=== PATIENT | female | born 1995 | race African-American/Black ===

== ENCOUNTER 2016-09-17 14:25 | Inpatient (IN) | payer OTHER ==
[~2016-09-17] VITALS: Ht 162.6 cm; Wt 126.6 kg
[2016-09-17] VITALS (8 sets, daily range): BP systolic 102–122; BP diastolic 55–78; PULSE 110–140; RESP 16–20; TEMP 99.2–102.7; O2SAT 95–99
[~2016-09-17 14:25] MED LIST: CORTIS10A RIGHT EAR; CYCL-36 PO; DICL50 PO; IBUP-232 PO
[2016-09-17] MEDS ORDERED: SODIUM CHLOR 0.9% 1000 ML INJ 1,000 ML IV ONE ×3 (15:21)
[2016-09-17] MEDS ORDERED: VANCOMYCIN INJ 1,000 MG in SODIUM CHLOR 0.9% 250 ML INJ 250 ML IV STA (15:21)
[2016-09-17] MEDS ORDERED: SODIUM CHLOR 0.9% 1000 ML INJ 900 ML IV ONE (15:21)
[2016-09-17] MEDS ORDERED: PIPERACIL-TAZO 4.5 GM PREMIX 100 ML IV STA (15:21)
[2016-09-17] MEDS ORDERED: ACETAMINOPHEN 650 MG/20.3 ML UDC PO ONE (15:30)
[2016-09-17 15:41] LABS: AUTOMATED NEUTROPHIL # 24.7 TH/MM3 (1.8-7.7); BASOPHIL # 0.4 TH/MM3 (0-0.2); BASOPHIL % 1.4 % (0.0-2.0); EOSINOPHIL % 0.1 % (0.0-4.0); HEMATOCRIT 26.6 % (35.0-46.0); LYMPH % 4.5 % (9.0-44.0); LYMPHOCYTE # 1.2 TH/MM3 (1.0-4.8); MEAN CELL VOLUME 77.4 FL (80.0-100.0); MEAN CORPUSCULAR HEMOGLOBIN 24.7 PG (27.0-34.0); MEAN CORPUSCULAR HGB CONC 31.9 % (32.0-36.0); PLATELET COUNT 369 TH/MM3 (150-450); RED BLOOD COUNT 3.43 MIL/MM3 (4.00-5.30); RED CELL DISTRIBUTION WIDTH 13.9 % (11.6-17.2); WHITE BLOOD COUNT 27.4 TH/MM3 (4.0-11.0)
[2016-09-17 15:44] LABS: HEMO FLAGS AUTO DIFF
[2016-09-17 15:49] LABS: CHLORIDE 106 MEQ/L (98-107); POTASSIUM 3.2 MEQ/L (3.5-5.1); SODIUM (NA) 140 MEQ/L (136-145)
[2016-09-17 15:53] LABS: ANION GAP 8 MEQ/L (5-15)
[2016-09-17 15:54] LABS: BLOOD UREA NITROGEN 11 MG/DL (7-18)
[2016-09-17 15:56] LABS: ALT (GPT) 25 U/L (10-53); AST (GOT) 16 U/L (15-37); GLOMERULAR FILTRATION RATE 62 ML/MIN (>89)
[2016-09-17 15:58] LABS: TOTAL BILIRUBIN ADULT 2.3 MG/DL (0.2-1.0)
[2016-09-17 15:59] LABS: ALKALINE PHOSPHATASE 72 U/L (45-117)
--- NOTE | 2016-09-17 16:01 | RADHPO ---
EXAM DATE/TIME: 09/17/2016 15:55 [facility] COMPARISON: No previous studies available for comparison. INDICATIONS : Vomiting, diarrhea and fever. MEDICAL HISTORY : None. SURGICAL HISTORY : None. ENCOUNTER: Initial ACUITY: 4 - 6 days PAIN SCORE: 10/10 LOCATION: Bilateral chest FINDINGS: There hypoventilatory changes. The lungs are otherwise clear. The heart is normal in size. Visualized bony structures are intact. CONCLUSION: Hypoventilatory changes. The film was taken in expiration. No acute cardiopulmonary findings. Juan Pablo MD on September 17, 2016 at 15:59 Board Certified Radiologist. This report was verified electronically.
[2016-09-17 16:10] LABS: BANDS 19 % (0-6); NEUTROPHIL # MANUAL DIFF 25.2 TH/MM3 (1.8-7.7); PLATELET ESTIMATE SMEAR NORMAL (NORMAL); PLATELET MORPHOLOGY NORMAL (NORMAL); POLYS (SEG NEUTROPHILS) 73 % (16-70); SCAN/DIFF FINAL DIFF MANUAL; WBC DIFF SAMPLE 100
[2016-09-17] MEDS ORDERED: DEXAMETHASONE SOD PHOS 20 MG/5 ML VIAL IV PUSH ONE (16:30)
[2016-09-17] MEDS ORDERED: IOHEXOL 350 MG/ML 10 ML VIAL (for RAD DIAG) IV ONE (17:15)
--- NOTE | 2016-09-17 17:19 | PD ---
HPI Chief Complaint: Cold / Flu Symptoms Time Seen by Provider: 15:13 Travel History International Travel<30 days: No Contact w/Intl Traveler<30days: No Traveled to known affect area: No History of Present Illness HPI 21y F with no PMH presents to the ED with c/o fever, throat pain for 4 days. Pt also had sob for 2 days and abdominal pain started yesterday. Abdominal pain is right sided, upper and lower abdomen. Worst with movement. Denies any chest pain, vomiting, focal weakness or numbness or urinary complaints. PFSH Past Medical History Hx Anticoagulant Therapy: No Asthma: Yes Cardiovascular Problems: No Chemotherapy: No Cerebrovascular Accident: No Developmental Delay: No Diabetes: No Diminished Hearing: No Respiratory: Yes (ASTHMA) Immunizations Current: Yes Tetanus Vaccination: > 5 Years Influenza Vaccination: No ?: Not LMP: spotting now Past Surgical History Surgical History: No Previous Surgery Hysterectomy: No Family History Family Hypercholesterolemia: No Social History Alcohol Use: No Tobacco Use: No Substance Use: No Allergies-Medications (Allergen,Severity, Reaction): Coded Allergies: No Known Allergies (Verified , 09/17/16) Reported Meds & Prescriptions Reported Meds & Active Scripts Active No Active Prescriptions or Reported Medications Review of Systems Except as stated in HPI: all other systems reviewed are Neg Physical Exam Narrative GENERAL: 21yo F in moderate distress. SKIN: Warm and dry. HEAD: Atraumatic. Normocephalic. EYES: Pupils equal and round. No scleral icterus. No injection or drainage. ENT: +Bilateral tonsillar edema with mild erythema. NECK: Trachea midline. No JVD. CARDIOVASCULAR: Tachycardic. RESPIRATORY: + accessory muscle use. Clear to auscultation. Breath sounds equal bilaterally. GASTROINTESTINAL: Abdomen soft, obese, +TTP epigastric, RUQ, RLQ. No rebound tenderness or guarding. MUSCULOSKELETAL: No obvious deformities. No clubbing. No cyanosis. No edema. NEUROLOGICAL: Awake and alert. No obvious cranial nerve deficits. Motor grossly within normal limits. Normal speech. PSYCHIATRIC: Appropriate mood and affect; insight and judgment normal. Data Data Last Documented VS Vital Signs Date Time Temp Pulse Resp B/P Pulse Ox O2 Delivery O2 Flow Rate FiO2 09/17/16 17:29 16 09/17/16 17:01 126 98 Room Air 09/17/16 14:28 102.7 122/78 Orders Complete Blood Count With Diff (09/17/16 15:21) Comprehensive Metabolic Panel (09/17/16 15:21) Lactic Acid Sepsis Protocol (09/17/16 15:21) Lipase (09/17/16 15:21) Urinalysis - C+S If Indicated (09/17/16 15:21) Influenzae A/B Antigen (09/17/16 15:21) Blood Culture (09/17/16 15:21) Chest, Single Ap (09/17/16 15:21) Ecg Monitoring (09/17/16 15:21) Iv Access Insert/Monitor (09/17/16 15:21) Oximetry (09/17/16 15:21) Ct Abd/Pel W Iv Contrast(Rout) (09/17/16 15:21) Vancomycin Inj (Vancomycin Inj) (09/17/16 15:21) Piperacil-Tazo 4.5 Gm Premix (Zosyn 4.5 (09/17/16 15:21) Sodium Chlor 0.9% 1000 Ml Inj (Ns 1000 M (09/17/16 15:21) Sodium Chlor 0.9% 1000 Ml Inj (Ns 1000 M (09/17/16 15:21) Sodium Chlor 0.9% 1000 Ml Inj (Ns 1000 M (09/17/16 15:21) Sodium Chlor 0.9% 1000 Ml Inj (Ns 1000 M (09/17/16 15:21) Ed Urine Pregnancytest Poc (09/17/16 15:21) Group A Rapid Strep Screen (09/17/16 15:21) Acetaminophen 650 Mg/20 Ml Liq (Tylenol (09/17/16 15:30) Dexamethasone Inj (Decadron Inj) (09/17/16 16:30) Iohexol 350 Inj (Omnipaque 350 Inj) (09/17/16 17:15) Potassium Chloride (Kcl) (09/17/16 17:30) Potassium Chloride Eff (K-Lyte Cl Eff) (09/17/16 17:45) Admit Order (Ed Use Only) (09/17/16 17:52) Labs Laboratory Tests Test 09/17/16 09/17/16 15:25 17:33 White Blood Count 27.4 TH/MM3 Red Blood Count 3.43 MIL/MM3 Hemoglobin 8.5 GM/DL Hematocrit 26.6 % Mean Corpuscular Volume 77.4 FL Mean Corpuscular Hemoglobin 24.7 PG Mean Corpuscular Hemoglobin 31.9 % Concent Red Cell Distribution Width 13.9 % Platelet Count 369 TH/MM3 Mean Platelet Volume 8.1 FL Neutrophils (%) (Auto) 90.0 % Lymphocytes (%) (Auto) 4.5 % Monocytes (%) (Auto) 4.0 % Eosinophils (%) (Auto) 0.1 % Basophils (%) (Auto) 1.4 % Neutrophils # (Auto) 24.7 TH/MM3 Lymphocytes # (Auto) 1.2 TH/MM3 Monocytes # (Auto) 1.1 TH/MM3 Eosinophils # (Auto) 0.0 TH/MM3 Basophils # (Auto) 0.4 TH/MM3 CBC Comment AUTO DIFF Differential Total Cells 100 Counted Neutrophils % (Manual) 73 % Band Neutrophils % 19 % Lymphocytes % 5 % Monocytes % 3 % Neutrophils # (Manual) 25.2 TH/MM3 Differential Comment FINAL DIFF MANUAL Platelet Estimate NORMAL Platelet Morphology Comment NORMAL Red Cell Morphology Comment NORMAL Sodium Level 140 MEQ/L Potassium Level 3.2 MEQ/L Chloride Level 106 MEQ/L Carbon Dioxide Level 26.0 MEQ/L Anion Gap 8 MEQ/L Blood Urea Nitrogen 11 MG/DL Creatinine 1.30 MG/DL Estimat Glomerular Filtration 62 ML/MIN Rate Random Glucose 114 MG/DL Lactic Acid Level 2.6 mmol/L Calcium Level 7.9 MG/DL Total Bilirubin 2.3 MG/DL Aspartate Amino Transf 16 U/L (AST/SGOT) Alanine Aminotransferase 25 U/L (ALT/SGPT) Alkaline Phosphatase 72 U/L Total Protein 7.3 GM/DL Albumin 2.9 GM/DL Lipase 49 U/L Urine Collection Type CATH Urine Color YELLOW Urine Turbidity SL Urine pH 6.0 Urine Specific Jansen 1.021 Urine Protein NEG mg/dL Urine Glucose (UA) NEG mg/dL Urine Ketones TRACE mg/dL Urine Occult Blood MOD Urine Nitrite NEG Urine Bilirubin NEG Urine Leukocyte Esterase NEG Urine RBC 0-3 /hpf Urine WBC 3-5 /hpf Urine Bacteria OCC /hpf MDM Medical Decision Making Medical Screen Exam Complete: Yes Emergency Medical Condition: Yes Interpretation(s) Laboratory Tests Test 09/17/16 09/17/16 15:25 17:33 White Blood Count 27.4 TH/MM3 (4.0-11.0) Red Blood Count 3.43 MIL/MM3 (4.00-5.30) Hemoglobin 8.5 GM/DL (11.6-15.3) Hematocrit 26.6 % (35.0-46.0) Mean Corpuscular Volume 77.4 FL (80.0-100.0) Mean Corpuscular Hemoglobin 24.7 PG (27.0-34.0) Mean Corpuscular Hemoglobin 31.9 % Concent (32.0-36.0) Red Cell Distribution Width 13.9 % (11.6-17.2) Platelet Count 369 TH/MM3 (150-450) Mean Platelet Volume 8.1 FL (7.0-11.0) Neutrophils (%) (Auto) 90.0 % (16.0-70.0) Lymphocytes (%) (Auto) 4.5 % (9.0-44.0) Monocytes (%) (Auto) 4.0 % (0.0-8.0) Eosinophils (%) (Auto) 0.1 % (0.0-4.0) Basophils (%) (Auto) 1.4 % (0.0-2.0) Neutrophils # (Auto) 24.7 TH/MM3 (1.8-7.7) Lymphocytes # (Auto) 1.2 TH/MM3 (1.0-4.8) Monocytes # (Auto) 1.1 TH/MM3 (0-0.9) Eosinophils # (Auto) 0.0 TH/MM3 (0-0.4) Basophils # (Auto) 0.4 TH/MM3 (0-0.2) CBC Comment AUTO DIFF Differential Total Cells 100 Counted Neutrophils % (Manual) 73 % (16-70) Band Neutrophils % 19 % (0-6) Lymphocytes % 5 % (9-44) Monocytes % 3 % (0-8) Neutrophils # (Manual) 25.2 TH/MM3 (1.8-7.7) Differential Comment FINAL DIFF MANUAL Platelet Estimate NORMAL (NORMAL) Platelet Morphology Comment NORMAL (NORMAL) Red Cell Morphology Comment NORMAL (NORMAL) Sodium Level 140 MEQ/L (136-145) Potassium Level 3.2 MEQ/L (3.5-5.1) Chloride Level 106 MEQ/L (98-107) Carbon Dioxide Level 26.0 MEQ/L (21.0-32.0) Anion Gap 8 MEQ/L (5-15) Blood Urea Nitrogen 11 MG/DL (7-18) Creatinine 1.30 MG/DL (0.50-1.00) Estimat Glomerular Filtration 62 ML/MIN (>89) Rate Random Glucose 114 MG/DL (74-106) Lactic Acid Level 2.6 mmol/L (0.4-2.0) Calcium Level 7.9 MG/DL (8.5-10.1) Total Bilirubin 2.3 MG/DL (0.2-1.0) Aspartate Amino Transf 16 U/L (15-37) (AST/SGOT) Alanine Aminotransferase 25 U/L (10-53) (ALT/SGPT) Alkaline Phosphatase 72 U/L (45-117) Total Protein 7.3 GM/DL (6.4-8.2) Albumin 2.9 GM/DL (3.4-5.0) Lipase 49 U/L (73-393) Urine Collection Type CATH Urine Color YELLOW (YELLW/STRAW) Urine Turbidity SL (CLEAR) Urine pH 6.0 (5.0-8.5) Urine Specific Jansen 1.021 (1.002-1.035) Urine Protein NEG mg/dL (NEG-TRACE) Urine Glucose (UA) NEG mg/dL (NEG) Urine Ketones TRACE mg/dL (NEG) Urine Occult Blood MOD (NEG) Urine Nitrite NEG (NEG) Urine Bilirubin NEG (NEG) Urine Leukocyte Esterase NEG (NEG) Urine RBC 0-3 /hpf (0-3) Urine WBC 3-5 /hpf (0-5) Urine Bacteria OCC /hpf (NONE) Last Impressions Chest X-Ray 09/17/16 1521 Signed Impressions: Service Date/Time: Saturday, September 17, 2016 15:55 - CONCLUSION: Hypoventilatory changes. The film was taken in expiration. No acute cardiopulmonary findings. Juan Pablo MD Abdomen/Pelvis CT 09/17/16 1521 Signed Impressions: Service Date/Time: Saturday, September 17, 2016 17:05 - CONCLUSION: Gallbladder contracted around multiple gallstones.. Lalo Schmidt MD Differential Diagnosis Strep throat vs. influenza vs. PNA vs. acute cholangitis vs. appendicitis Narrative Course 21yo F with fever and tachycardia meeting SIRS criteria. Pt empirically given vancomycin and zosyn. Pt also give dexamethasone for swelling in throat. NS IVF x4 ordered. Labs reviewed, leukocytosis at 27.4. H/H 8.5/26.6. Pt has been having irregular menstruation. K: 3.2. Creatinine elevated at 1.30, increased from 0.8 on 01/2016. Lactic acid 2.6. Lipase low at 49. No elevation of LFTs. Total bilirubin elevated at 2.3. Positive rapid strep. CTa /p showed gallbladder contracted with multiple gallstones. CXR showed no acute cardiopulmonary findings. UA with occasional bacteria. Pt with sepsis and end organ damage. Pt responding to IVF and feels better. Discussed with Dr. Garcia and accepted for severe sepsis. Critical Care Narrative Aggregate critical care time was 40 minutes. Time to perform other separately billable procedures was not included in the critical care time. My time did not include minutes spent treating any other patients simultaneously or on activities that did not directly contribute to the patient's treatment. The services I provided to this patient were to treat and/or prevent clinically significant deterioration that could result in: cardiovascular collapse or . I provided critical care services requiring my management, as noted below: Chart data review, documentation time, medication orders and management, vital sign assessments/reviewing monitor data, ordering and reviewing lab tests, ordering and interpreting/reviewing x-rays and diagnostic studies, care of the patient and discussion of the patient with the admitting physicians. Sepsis Criteria SIRS Criteria (2 or more): Temp > 100.9 or < 96.8, Heart rate over 90 Sepsis Criteria (SIRS+source): Infect source susp/known Severe Sepsis (+one): Organ Dysfunction, Lactate >2, Acute Oliguria/Renal Failure Diagnosis Primary Impression: Severe sepsis Admitting Information Admitting Physician Requests: Admit Scripts No Active Prescriptions or Reported Meds Ann Marie Wayne DO Sep 17, 2016 17:19
--- NOTE | 2016-09-17 17:23 | RADHPO ---
EXAM DATE/TIME: 09/17/2016 17:05 [facility] COMPARISON: No previous studies available for comparison. INDICATIONS : Lower right abdomen pain. IV CONTRAST: 100 cc Omnipaque 350 (iohexol) IV ORAL CONTRAST: No oral contrast ingested. RADIATION DOSE: 23.44 CTDIvol (mGy) MEDICAL HISTORY : Asthma SURGICAL HISTORY : None. ENCOUNTER: Initial ACUITY: 1 day PAIN SCALE: 5/10 LOCATION: Right abdomen TECHNIQUE: Volumetric scanning of the abdomen and pelvis was performed. Using automated exposure control and ad justment of the mA and/or kV according to patient size, radiation dose was kept as low as reasonably achievable to obtain optimal diagnostic quality images. FINDINGS: LOWER LUNGS: The visualized lower lungs are clear. LIVER: Homogeneous density without lesion. There is no dilation of the biliary tree. The gallbladder is con tracted around multiple gallstones. SPLEEN: Normal size without lesion. PANCREAS: Within normal limits. KIDNEYS: Normal in size and shape. There is no mass, stone or hydronephrosis. ADRENAL GLANDS: Within normal limits. VASCULAR: There is no aortic aneurysm. BOWEL/MESENTERY: The stomach, small bowel, and colon demonstrate no acute abnormality. There is no free intraperitone al air or fluid. ABDOMINAL WALL: Within normal limits. RETROPERITONEUM: There is no lymphadenopathy. BLADDER: No wall thickening or mass. REPRODUCTIVE: Within normal limits. INGUINAL: There is no lymphadenopathy or hernia. MUSCULOSKELETAL: Within normal limits for patient age. CONCLUSION: Gallbladder contracted around multiple gallstones.. Lalo Schmidt MD on September 17, 2016 at 17:19 Board Certified Radiologist. This report was verified electronically.
[2016-09-17] MEDS ORDERED: POTASSIUM CHLORIDE 20 MEQ CONTROLLED RELEASE TAB PO ONE (17:30)
[2016-09-17 17:36] LABS: LACTIC ACID GHOST NOT REPORTABLE
[2016-09-17] MEDS ORDERED: POTASSIUM CHLORIDE 25 MEQ EFFERVESCENT TAB PO ONE (17:45)
[2016-09-17 17:56] LABS: GLUCOSE,URINE NEG (NEG); KETONE, URINE TRACE mg/dL (NEG); NITRITE,URINE NEG (NEG)
[2016-09-17 17:57] LABS: BLOOD, URINE MOD (NEG)
[2016-09-17 18:05] LABS: METHOD OF COLLECTION CATH; URINE COLOR YELLOW (YELLW/STRAW)
[2016-09-17 18:06] LABS: BACTERIA, URINE OCC /hpf; CULTURE IF INDICATED CATH CULTURE IND; RBC, URINE 0-3 /hpf (0-3)
[2016-09-17 18:28] LABS: AUTOMATED NEUTROPHIL # 20.7 TH/MM3 (1.8-7.7); BASOPHIL # 0.2 TH/MM3 (0-0.2); HEMATOCRIT 26.4 % (35.0-46.0); LYMPH % 5.5 % (9.0-44.0); LYMPHOCYTE # 1.3 TH/MM3 (1.0-4.8); MEAN CELL VOLUME 77.9 FL (80.0-100.0); MEAN CORPUSCULAR HEMOGLOBIN 25.1 PG (27.0-34.0); MEAN CORPUSCULAR HGB CONC 32.3 % (32.0-36.0); MONO % 3.7 % (0.0-8.0); NEUT % 89.8 % (16.0-70.0); PLATELET COUNT 343 TH/MM3 (150-450); RED BLOOD COUNT 3.39 MIL/MM3 (4.00-5.30); RED CELL DISTRIBUTION WIDTH 13.8 % (11.6-17.2); WHITE BLOOD COUNT 23.1 TH/MM3 (4.0-11.0)
[2016-09-17 18:31] LABS: HEMO FLAGS AUTO DIFF
--- NOTE | 2016-09-17 18:53 | HHI.HP ---
HPI Service [facility] Hospitalists Primary Care Physician Tiffanie Vyas MD Admission Diagnosis Sepsis Chief Complaint: sore throat, n/v Travel History International Travel<30 Days: No Contact w/Intl Traveler <30 Da: No Traveled to Known Affected Are: No Sepsis Criteria SIRS Criteria (2 or more): Temp > 100.9 or < 96.8, Heart rate over 90, WBC > 19263, < 4000 or > 10% bands Sepsis Criteria (SIRS+source): Infect source susp/known Severe Sepsis (+one): Lactate >2 History of Present Illness Pleasant morbidly obese 21-year-old Afro-Malagasy female with History of menometrorrhagia related to the ER with complaint of sore throat fevers and nausea vomiting. She says the sore throat started approximately 4-5 days ago but that is actually improved somewhat. She had 2 episodes of vomiting yesterday and one episode of vomiting today and just general malaise so she was brought to the ER by her mother. The patient denies any recent foreign travel she has had some fevers and chills at home over the last couple of days. She denies any dysuria hematuria hematochezia melena. She's had heavy menses intermittently for the last 2-1/2 months which she says is a chronic issue for her. She has been on oral contraceptives in the past to help regulate her menses. She denies any foul-smelling vaginal discharge but does have heavy menses as noted above. She reportedly has a history of asthma but does not had a productive cough place however she has noted little wheezing yesterday and today. Initial ER evaluation noted for tachycardic patient with heart rate in the 140s and blood pressure systolically in the 120s. She was also febrile with a temp of 102.7. Her strep antigen was positive and white blood cell count was elevated at 27, 000 with left shift and bands. She is also anemic with hemoglobin of 8.5 which is likely associated with heavy menses. She has been given IV antibiotics and IV fluids. Her heart rate is responding and blood pressure remained stable. I repeated the CBC and white count is still around 23 or 24,000. Lactic acid slightly elevated as well. Repeat lactate Is pending. Review of Systems Constitutional: COMPLAINS OF: Diaphoretic episodes, Fever, Change in appetite Endocrine: COMPLAINS OF: Abnorml menstrual pattern Eyes: DENIES: Blurred vision, Diplopia, Eye inflammation, Eye pain, Vision loss , Photosensitivity, Double Vision Ears, nose, mouth, throat: DENIES: Tinnitus, Hearing loss, Vertigo, Nasal discharge, Oral lesions, Throat pain, Hoarseness, Ear Pain, Running Nose, Epistaxis, Sinus Pain, Toothache, Odynophagia Respiratory: COMPLAINS OF: Cough, Wheezing, DENIES: Apneas, Snoring, Hemoptysis, Sputum production, Shortness of breath Cardiovascular: DENIES: Chest pain, Palpitations, Syncope, Dyspnea on Exertion , PND, Lower Extremity Edema, Orthopnea, Claudication Gastrointestinal: COMPLAINS OF: Abdominal pain, Nausea, Vomiting, DENIES: Black stools, Bloody stools, BRB per rectum, Constipation, Diarrhea, GERD, Reflux, Difficulty Swallowing, Anorexia, See HPI Genitourinary: COMPLAINS OF: Abnormal vaginal bleeding, DENIES: Dysmenorrhea, Dyspareunia, Sexual dysfunction, Urinary frequency, Urinary incontinence, Urgency, Hematuria, Dysuria, Nocturia, Vaginal discharge Musculoskeletal: DENIES: Joint pain, Muscle aches, Stiffness, Joint Swelling, Back pain, Neck pain Integumentary: DENIES: Abnormal pigmentation, Pruritus, Rash, Nail changes, Breast masses, Breast skin changes, Nipple discharge Hematologic/lymphatic: DENIES: Bruising, Lymphadenopathy Immunologic/allergic: DENIES: Eczema, Urticaria Neurologic: DENIES: Abnormal gait, Headache, Localized weakness, Paresthesias, Seizures, Speech Problems, Tremor, Poor Balance Psychiatric: DENIES: Anxiety, Confusion, Mood changes, Depression, Hallucinations, Agitation, Suicidal Ideation, Homicidal Ideation, Delusions, History of Bipolar, History of Schizophrenia Past Family Social History Past Medical History Obesity Asthma Menometrorrhagia with questionable polycystic ovarian syndrome Anemia requiring iron supplementation due to menorrhagia Past Surgical History None Reported Medications None Allergies: Coded Allergies: No Known Allergies (Verified , 09/17/16) Family History Mother had a history of breast cancer Father had apparently gallstones and colon polyps. Social History Patient lives with her mother. 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 Physical Exam Vital Signs Vital Signs Date Time Temp Pulse Resp B/P Pulse Ox O2 Delivery O2 Flow Rate FiO2 09/17/16 18:30 126 18 116/69 99 Room Air 09/17/16 18:20 100.3 125 16 104/57 95 Room Air 09/17/16 17:29 16 09/17/16 17:01 126 16 98 Room Air 09/17/16 15:25 99 Room Air 09/17/16 14:28 102.7 140 16 122/78 99 Physical Exam GENERAL: This is a well-nourished, morbidly obese, well-developed patient, in no apparent distress. Alert oriented, cooperative. SKIN: No rashes, ecchymoses or lesions. Cool and dry. HEAD: Atraumatic. Normocephalic. No temporal or scalp tenderness. EYES: Pupils equal round and reactive. Extraocular motions intact. Slightly muddy sclera. ENT: Nose without bleeding, purulent drainage or septal hematoma. Throat with mild erythema and tonsillar hypertrophy. No exudate. Uvula midline. Airway patent. NECK: Trachea midline. No JVD. Mild anterior cervical lymphadenopathy. Supple , nontender, no meningeal signs. CARDIOVASCULAR: Mildly tachycardic without murmurs, gallops, or rubs. Rate in 120s on my exam. RESPIRATORY: Clear to auscultation. Breath sounds equal bilaterally. No wheezes , rales, or rhonchi. GASTROINTESTINAL: Abdomen soft, non-tender, nondistended. No hepato-splenomegaly , or palpable masses. No guarding. No rebound. Pavon sign was negative. MUSCULOSKELETAL: Extremities without clubbing, cyanosis, or edema. No joint tenderness, effusion, or edema noted. No calf tenderness. Slight tenderness over right flank. NEUROLOGICAL: Awake and alert. Cranial nerves II through XII intact. Motor and sensory grossly within normal limits. Five out of 5 muscle strength in all muscle groups. Normal speech. Laboratory Laboratory Tests Test 09/17/16 09/17/16 09/17/16 15:25 17:33 18:14 White Blood Count 27.4 23.1 Red Blood Count 3.43 3.39 Hemoglobin 8.5 8.5 Hematocrit 26.6 26.4 Mean Corpuscular Volume 77.4 77.9 Mean Corpuscular Hemoglobin 24.7 25.1 Mean Corpuscular Hemoglobin 31.9 32.3 Concent Red Cell Distribution Width 13.9 13.8 Platelet Count 369 343 Mean Platelet Volume 8.1 8.1 Neutrophils (%) (Auto) 90.0 89.8 Lymphocytes (%) (Auto) 4.5 5.5 Monocytes (%) (Auto) 4.0 3.7 Eosinophils (%) (Auto) 0.1 0.0 Basophils (%) (Auto) 1.4 1.0 Neutrophils # (Auto) 24.7 20.7 Lymphocytes # (Auto) 1.2 1.3 Monocytes # (Auto) 1.1 0.9 Eosinophils # (Auto) 0.0 0.0 Basophils # (Auto) 0.4 0.2 CBC Comment AUTO DIFF AUTO DIFF Differential Total Cells 100 Counted Neutrophils % (Manual) 73 Band Neutrophils % 19 Lymphocytes % 5 Monocytes % 3 Neutrophils # (Manual) 25.2 Differential Comment FINAL DIFF MANUAL Platelet Estimate NORMAL Platelet Morphology Comment NORMAL Red Cell Morphology Comment NORMAL Sodium Level 140 Potassium Level 3.2 Chloride Level 106 Carbon Dioxide Level 26.0 Anion Gap 8 Blood Urea Nitrogen 11 Creatinine 1.30 Estimat Glomerular Filtration 62 Rate Random Glucose 114 Lactic Acid Level 2.6 Calcium Level 7.9 Total Bilirubin 2.3 Aspartate Amino Transf 16 (AST/SGOT) Alanine Aminotransferase 25 (ALT/SGPT) Alkaline Phosphatase 72 Total Protein 7.3 Albumin 2.9 Lipase 49 Urine Collection Type CATH Urine Color YELLOW Urine Turbidity SL Urine pH 6.0 Urine Specific Warba 1.021 Urine Protein NEG Urine Glucose (UA) NEG Urine Ketones TRACE Urine Occult Blood MOD Urine Nitrite NEG Urine Bilirubin NEG Urine Leukocyte Esterase NEG Urine RBC 0-3 Urine WBC 3-5 Urine Bacteria OCC Date/Time Procedure Status Source Growth 09/17/16 15:30 Group A Streptococcus Screen ([facility]UDILIO) - Final Complete Throat Pos For Grp A Strep Antigen 09/17/16 15:30 Aerobic Blood Culture Received Blood Peripheral Pending 09/17/16 15:30 Anaerobic Blood Culture Received Blood Peripheral Pending 09/17/16 15:28 Influenza Types A,B Antigen ([facility]UDILIO) - Final Complete Nasal Aspirate NEGATIVE FOR FLU A AND B ANTIGEN.... Result Diagram: 09/17/16 1814 09/17/16 1525 Imaging Last 72 hours Impressions Chest X-Ray 09/17/16 1521 Signed Impressions: Service Date/Time: Saturday, September 17, 2016 15:55 - CONCLUSION: Hypoventilatory changes. The film was taken in expiration. No acute cardiopulmonary findings. Juan Pablo MD Abdomen/Pelvis CT 09/17/16 1521 Signed Impressions: Service Date/Time: Saturday, September 17, 2016 17:05 - CONCLUSION: Gallbladder contracted around multiple gallstones.. Lalo Schmidt MD Septic Shock Reassessment Heart: Regular rate and rhythm Lungs: Clear Skin: Warm Peripheral Pulses: Bounding Right Radial Bounding Left Radial Bounding Right Posterior Tibial Bounding Left Posterior Tibial Capillary Refill: Brisk Assessment and Plan Problem List: (1) Sepsis Status: Acute Plan: Questionable etiology. She does have group A strep positive, but throat doesn't appear that irritated. She has gallstones and a contracted gallbladder but her abdomen exam is essentially normal. We'll provide IV fluids and antibiotics. Continue to monitor closely. Blood cultures pending. Pro-calcitonin ordered. (2) Anemia Status: Chronic Plan: Likely associated with menorrhagia. We'll continue to follow. We'll provide iron supplementation. She may need to go back on oral contraceptive pills an outpatient. (3) Morbid obesity Status: Chronic Plan: Encouraged weight loss. (4) Menorrhagia Status: Chronic Plan: As noted above. Chronic issue. Managed outpatient. Code Status Full Discussed Condition With Patient, her mother and her aunt. Physician Certification 2 Midnight Certification Type: Admission for Inpatient Services Order for Inpatient Services The services are ordered in accordance with Medicare regulations or non- Medicare payer requirements, as applicable. In the case of services not specified as inpatient-only, they are appropriately provided as inpatient services in accordance with the 2-midnight benchmark. Estimated LOS (days): 2 days is the estimated time the patient will need to remain in the hospital, assuming treatment plan goals are met and no additional complications. Post-Hospital Plan: Home Problem Qualifiers (1) Sepsis: Qualified Code: A40.0 - Sepsis due to group A Streptococcus (2) Anemia: Qualified Code: D50.0 - Iron deficiency anemia due to chronic blood loss Jos Garcia PhD Sep 17, 2016 18:53
[2016-09-17] MEDS ORDERED: ACETAMINOPHEN 325 MG/10.15 ML UDC PO PRN (19:00)
[2016-09-17] MEDS ORDERED: methylPREDNISolone SOD SUCC 40 MG/1 ML VIAL IV PUSH ONE (19:00)
[2016-09-17 19:08] LABS: PLATELET ESTIMATE SMEAR NORMAL (NORMAL); PLATELET MORPHOLOGY NORMAL (NORMAL); SCAN/DIFF AUTO DIFF CONFIRMED
[2016-09-17] MEDS: cefTRIAXone INJ 1,000 MG in SODIUM CHLORIDE 0.9% INJ 100 ML IV SCH (19:35)
[2016-09-17] MEDS: NS + KCL 20 MEQ INJ 1,000 ML IV SCH (19:35)
[2016-09-18] VITALS (11 sets, daily range): BP systolic 103–119; BP diastolic 57–78; PULSE 78–104; RESP 18–20; TEMP 96.2–98.2; O2SAT 94–99
[2016-09-18] MEDS: NS + KCL 20 MEQ INJ 1,000 ML IV SCH ×3 (04:41→18:18)
[2016-09-18 06:39] LABS: AUTOMATED NEUTROPHIL # 24.9 TH/MM3 (1.8-7.7); EOSINOPHIL # 0.2 TH/MM3 (0-0.4); EOSINOPHIL % 0.6 % (0.0-4.0); HEMATOCRIT 24.5 % (35.0-46.0); LYMPH % 2.4 % (9.0-44.0); LYMPHOCYTE # 0.6 TH/MM3 (1.0-4.8); MEAN CELL VOLUME 78.4 FL (80.0-100.0); MEAN CORPUSCULAR HEMOGLOBIN 25.2 PG (27.0-34.0); MEAN CORPUSCULAR HGB CONC 32.2 % (32.0-36.0); MONO % 1.7 % (0.0-8.0); NEUT % 95.3 % (16.0-70.0); PLATELET COUNT 364 TH/MM3 (150-450); RED BLOOD COUNT 3.13 MIL/MM3 (4.00-5.30); RED CELL DISTRIBUTION WIDTH 14.1 % (11.6-17.2); WHITE BLOOD COUNT 26.1 TH/MM3 (4.0-11.0)
[2016-09-18 06:44] LABS: HEMO FLAGS DIFF FINAL
[2016-09-18 06:49] LABS: POTASSIUM 3.6 MEQ/L (3.5-5.1)
[2016-09-18 07:06] LABS: BICARBONATE 23.2 MEQ/L (21.0-32.0); CALCIUM-PROTEIN CORRECTED 7.7 MG/DL (8.5-10.1); TOTAL BILIRUBIN ADULT 1.3 MG/DL (0.2-1.0)
--- NOTE | 2016-09-18 08:04 | HHI.PR ---
Subjective Remarks Feeling much better morning. No more flank pain. No more nausea or vomiting. Throat pain is also nearly completely resolved. Fevers have decreased. Objective Vitals Vital Signs Date Time Temp Pulse Resp B/P Pulse Ox O2 Delivery O2 Flow Rate FiO2 09/18/16 06:00 91 09/18/16 04:00 88 09/18/16 04:00 96.2 94 20 116/72 98 09/18/16 02:00 92 09/18/16 00:29 98 09/18/16 00:27 94 20 106/57 99 09/18/16 00:20 98.2 104 20 104/67 97 09/17/16 22:58 99.2 09/17/16 21:44 99.9 110 20 102/57 97 09/17/16 20:44 100.4 116 20 108/70 98 09/17/16 19:13 101.4 128 20 115/55 96 09/17/16 19:13 123 20 96 09/17/16 18:30 126 18 116/69 99 Room Air 09/17/16 18:20 100.3 125 16 104/57 95 Room Air 09/17/16 17:29 16 09/17/16 17:01 126 16 98 Room Air 09/17/16 15:25 99 Room Air 09/17/16 14:28 102.7 140 16 122/78 99 09/17/16 09/17/16 09/18/16 15:00 23:00 07:00 Intake Total 2590 ml 3373 ml Output Total 800 ml Balance 2590 ml 2573 ml Intake Oral 240 ml 240 ml IV Total 2350 ml 3133 ml Output Urine Total 800 ml # Voids 1 # Bowel Movements 0 GENERAL: Sleeping but arouses to voice. No acute distress. Pleasant and cooperative. Morbidly obese. SKIN: Warm and dry. HEAD: Normocephalic. Oropharynx clear with mild erythema right tonsillar pillar. No exudate appreciated. EYES: No scleral icterus. No injection or drainage. NECK: Supple, trachea midline. No JVD or lymphadenopathy. No meningeal signs. CARDIOVASCULAR: Regular rate and rhythm without murmurs, gallops, or rubs. Rate in 80s to 90s on my exam. RESPIRATORY: Breath sounds equal bilaterally. No accessory muscle use. No wheeze. GASTROINTESTINAL: Abdomen soft, non-tender, nondistended. Pavon sign negative. No guarding or rebound. MUSCULOSKELETAL: No cyanosis, or edema. BACK: Nontender without obvious deformity. No CVA tenderness. Result Diagram: 09/18/1652209/18/16522 Imaging Last 72 hours Impressions Chest X-Ray 09/17/16 1521 Signed Impressions: Service Date/Time: Saturday, September 17, 2016 15:55 - CONCLUSION: Hypoventilatory changes. The film was taken in expiration. No acute cardiopulmonary findings. Juan Pablo MD Abdomen/Pelvis CT 09/17/16 1521 Signed Impressions: Service Date/Time: Saturday, September 17, 2016 17:05 - CONCLUSION: Gallbladder contracted around multiple gallstones.. Lalo Schmidt MD Urinary Catheter: No Vascular Central Line Catheter: No A/P Problem List: (1) Sepsis Status: Acute Plan: Questionable etiology. She does have group A strep positive, but throat doesn't appear that irritated. She has gallstones and a contracted gallbladder but her abdomen exam is essentially normal. We'll provide IV fluids and antibiotics. Continue to monitor closely. Blood cultures pending. Pro-calcitonin consistent with sepsis. Clinically much improved this morning. Vitals improving and fever diminished. We'll continue current therapy. White count is still quite elevated but this may be associated with the steroid as well as protracted infectious process. (2) Anemia Status: Chronic Plan: Likely associated with menorrhagia. We'll continue to follow. We'll provide iron supplementation. She may need to go back on oral contraceptive pills as an outpatient. (3) Morbid obesity Status: Chronic Plan: Encouraged weight loss. (4) Menorrhagia Status: Chronic Plan: As noted above. Chronic issue. Managed outpatient. Discharge Planning Hopefully discharge in 1-2 days. Problem Qualifiers (1) Sepsis: Qualified Code: A40.0 - Sepsis due to group A Streptococcus (2) Anemia: Qualified Code: D50.0 - Iron deficiency anemia due to chronic blood loss Jos Garcia PhD Sep 18, 2016 08:04
[2016-09-18] MEDS: MULTIVITAMINS/IRON/MINERALS CHEWABLE TAB CHEW SCH (10:00)
[2016-09-18] MEDS: CALCIUM CARBONATE 500 MG CHEWABLE TAB CHEW SCH ×2 (10:34→20:35)
[2016-09-18 14:20] LABS: AUTOMATED NEUTROPHIL # 27.8 TH/MM3 (1.8-7.7); BASOPHIL % 0.1 % (0.0-2.0); EOSINOPHIL # 0.2 TH/MM3 (0-0.4); EOSINOPHIL % 0.8 % (0.0-4.0); LYMPH % 2.4 % (9.0-44.0); LYMPHOCYTE # 0.7 TH/MM3 (1.0-4.8); MEAN CORPUSCULAR HEMOGLOBIN 24.8 PG (27.0-34.0); MEAN CORPUSCULAR HGB CONC 31.8 % (32.0-36.0); MONO % 1.7 % (0.0-8.0); PLATELET COUNT 429 TH/MM3 (150-450); RED BLOOD COUNT 3.59 MIL/MM3 (4.00-5.30); RED CELL DISTRIBUTION WIDTH 14.1 % (11.6-17.2); WHITE BLOOD COUNT 29.2 TH/MM3 (4.0-11.0)
[2016-09-18 14:24] LABS: HEMO FLAGS AUTO DIFF
[2016-09-18 14:58] LABS: SCAN/DIFF AUTO DIFF CONFIRMED
[2016-09-18 17:54] LABS: HEMOGLOBIN A1a 1.4 %; HEMOGLOBIN A1b 0.8 %; HEMOGLOBIN Ao 85.8 %; HEMOGLOBIN F 0.8 %; HEMOGLOBIN LA1C 2.1 %; HEMOGLOBIN P3 3.3 %
[2016-09-18] MEDS: cefTRIAXone INJ 1,000 MG in SODIUM CHLORIDE 0.9% INJ 100 ML IV SCH (18:17)
[2016-09-19] VITALS (8 sets, daily range): BP systolic 109–116; BP diastolic 56–78; PULSE 60–97; RESP 15–18; TEMP 97.1–98.2; O2SAT 97–99
[2016-09-19] MEDS: NS + KCL 20 MEQ INJ 1,000 ML IV SCH (03:10)
[2016-09-19 06:31] LABS: AUTOMATED NEUTROPHIL # 22.2 TH/MM3 (1.8-7.7); BASOPHIL # 0.1 TH/MM3 (0-0.2); BASOPHIL % 0.3 % (0.0-2.0); EOSINOPHIL % 0.1 % (0.0-4.0); HEMATOCRIT 23.5 % (35.0-46.0); HEMO FLAGS AUTO DIFF; LYMPH % 10.2 % (9.0-44.0); LYMPHOCYTE # 2.6 TH/MM3 (1.0-4.8); MEAN CELL VOLUME 77.5 FL (80.0-100.0); MEAN CORPUSCULAR HEMOGLOBIN 25.3 PG (27.0-34.0); MEAN CORPUSCULAR HGB CONC 32.7 % (32.0-36.0); MONO % 2.9 % (0.0-8.0); NEUT % 86.5 % (16.0-70.0); PLATELET COUNT 403 TH/MM3 (150-450); RED BLOOD COUNT 3.04 MIL/MM3 (4.00-5.30); RED CELL DISTRIBUTION WIDTH 13.9 % (11.6-17.2); WHITE BLOOD COUNT 25.6 TH/MM3 (4.0-11.0)
[2016-09-19 06:41] LABS: POTASSIUM 3.9 MEQ/L (3.5-5.1)
[2016-09-19 06:52] LABS: BICARBONATE 25.2 MEQ/L (21.0-32.0); CALCIUM-PROTEIN CORRECTED 8.1 MG/DL (8.5-10.1); TOTAL BILIRUBIN ADULT 0.4 MG/DL (0.2-1.0)
[2016-09-19 07:21] LABS: SCAN/DIFF AUTO DIFF CONFIRMED
--- NOTE | 2016-09-19 08:05 | HHI.PR ---
Subjective Remarks Feels much better. No more sore throat or n/v. Has been ambulating in room and tolerating oral intake well. Objective Vitals Vital Signs Date Time Temp Pulse Resp B/P Pulse Ox O2 Delivery O2 Flow Rate FiO2 09/19/16 04:00 97.1 60 18 110/72 98 09/19/16 00:00 98.0 97 18 116/66 97 09/18/16 20:00 97.5 98 18 119/72 99 09/18/16 20:00 95 09/18/16 16:00 98.0 90 18 110/74 97 09/18/16 12:00 98.0 78 18 103/77 94 09/18/16 10:00 98 09/18/16 09/18/16 09/19/16 15:00 23:00 07:00 Intake Total 720 ml 240 ml Balance 720 ml 240 ml Intake Oral 720 ml 240 ml # Voids 3 5 # Bowel Movements 0 GENERAL: Alert and oriented. Watching TV. No acute distress. Pleasant and cooperative. Morbidly obese. SKIN: Warm and dry. HEAD: Normocephalic. Oropharynx clear with minimal erythema right tonsillar pillar. No exudate appreciated. EYES: No scleral icterus. No injection or drainage. NECK: Supple, trachea midline. No JVD or lymphadenopathy. No meningeal signs. CARDIOVASCULAR: Regular rate and rhythm without murmurs, gallops, or rubs. Rate in 80s on my exam. RESPIRATORY: Breath sounds equal bilaterally. No accessory muscle use. No wheeze. GASTROINTESTINAL: Abdomen soft, non-tender, nondistended. Pavon sign negative. No guarding or rebound. MUSCULOSKELETAL: No cyanosis, or edema. BACK: Nontender without obvious deformity. No CVA tenderness. Result Diagram: 09/19/1652409/19/16524 Imaging Last 72 hours Impressions Chest X-Ray 09/17/16 1521 Signed Impressions: Service Date/Time: Saturday, September 17, 2016 15:55 - CONCLUSION: Hypoventilatory changes. The film was taken in expiration. No acute cardiopulmonary findings. Juan Pablo MD Abdomen/Pelvis CT 09/17/16 1521 Signed Impressions: Service Date/Time: Saturday, September 17, 2016 17:05 - CONCLUSION: Gallbladder contracted around multiple gallstones.. Lalo Schmidt MD Urinary Catheter: No Vascular Central Line Catheter: No A/P Problem List: (1) Sepsis Status: Acute Plan: Still somewhat questionable etiology. She does have group A strep positive, but throat doesn't appear that irritated. She has gallstones and a contracted gallbladder but her abdomen exam is essentially normal. We'll stop IV fluids and convert to oral antibiotics. Blood cultures pending. Pro-calcitonin consistent with sepsis. Clinically continues to improve. White count decreasing but is still quite elevated. This may be associated with the steroid as well as protracted infectious process. (2) Anemia Status: Chronic Plan: Likely associated with menorrhagia. We'll continue to follow. We'll provide iron supplementation. She may need to go back on oral contraceptive pills as an outpatient. (3) Morbid obesity Status: Chronic Plan: Encouraged weight loss. (4) Menorrhagia Status: Chronic Plan: As noted above. Chronic issue. Managed outpatient. Discharge Planning Hopefully discharge later today or tomorrow. Problem Qualifiers (1) Sepsis: Qualified Code: A40.0 - Sepsis due to group A Streptococcus (2) Anemia: Qualified Code: D50.0 - Iron deficiency anemia due to chronic blood loss Jos Garcia PhD Sep 19, 2016 08:05
[2016-09-19] MEDS: MULTIVITAMINS/IRON/MINERALS CHEWABLE TAB CHEW SCH (09:00)
[2016-09-19] MEDS: AMOXICIL-CLAVU 400 MG/5 ML LIQ 100 ML BTL PO SCH ×2 (10:07→21:14)
[2016-09-19] MEDS: CALCIUM CARBONATE 500 MG CHEWABLE TAB CHEW SCH ×2 (10:07→19:36)
[2016-09-19] MEDS ORDERED: MULTIVITAMINS/IRON/MINERALS CHEWABLE TAB CHEW ONE (17:30)
[2016-09-20] VITALS: BP 106/59; PULSE 84; RESP 18; TEMP 97.9; O2SAT 98
[2016-09-20 04:00] VITALS: BP 106/70; PULSE 87; RESP 18; TEMP 97.1; O2SAT 99
[2016-09-20 06:25] LABS: AUTOMATED NEUTROPHIL # 9.8 TH/MM3 (1.8-7.7); BASOPHIL # 0.1 TH/MM3 (0-0.2); BASOPHIL % 0.5 % (0.0-2.0); EOSINOPHIL # 0.2 TH/MM3 (0-0.4); EOSINOPHIL % 1.5 % (0.0-4.0); HEMATOCRIT 24.8 % (35.0-46.0); LYMPH % 23.1 % (9.0-44.0); LYMPHOCYTE # 3.2 TH/MM3 (1.0-4.8); MEAN CELL VOLUME 78.8 FL (80.0-100.0); MEAN CORPUSCULAR HEMOGLOBIN 24.8 PG (27.0-34.0); MEAN CORPUSCULAR HGB CONC 31.5 % (32.0-36.0); MONO % 5.1 % (0.0-8.0); NEUT % 69.8 % (16.0-70.0); PLATELET COUNT 358 TH/MM3 (150-450); RED BLOOD COUNT 3.15 MIL/MM3 (4.00-5.30); RED CELL DISTRIBUTION WIDTH 14.4 % (11.6-17.2)
[2016-09-20 06:28] LABS: HEMO FLAGS AUTO DIFF
[2016-09-20 06:51] LABS: PLATELET ESTIMATE SMEAR NORMAL (NORMAL); PLATELET MORPHOLOGY NORMAL (NORMAL)
[2016-09-20 06:52] LABS: ROULEAUX PRESENT (NORMAL); SCAN/DIFF AUTO DIFF CONFIRMED
--- NOTE | 2016-09-20 06:57 | HHI.PR ---
Subjective Remarks Feels fine. Slight sore throat earlier this morning but that has resolved. Tolerating oral intake well. Has been ambulating about the room on multiple occasions during the last 2 days. Objective Vitals Vital Signs Date Time Temp Pulse Resp B/P Pulse Ox O2 Delivery O2 Flow Rate FiO2 09/20/16 04:00 97.1 87 18 106/70 99 09/20/16 00:00 97.9 84 18 106/59 98 09/19/16 20:00 98.0 87 18 109/78 99 09/19/16 19:56 89 09/19/16 15:46 98.2 89 16 114/76 98 09/19/16 13:08 97.8 78 15 115/65 99 09/19/16 08:18 98.2 81 15 115/56 98 09/19/16 08:00 83 09/19/16 09/19/16 09/20/16 15:00 23:00 07:00 Intake Total 1200 ml 480 ml Balance 1200 ml 480 ml Intake Oral 1200 ml 480 ml # Voids 4 5 # Bowel Movements 1 1 GENERAL: Alert and oriented, watching TV, no acute distress. SKIN: Warm and dry. HEAD: Normocephalic. Minimal erythema in the right posterior oropharynx. No exudate. EYES: No scleral icterus. No injection or drainage. NECK: Supple, trachea midline. No JVD or lymphadenopathy. CARDIOVASCULAR: Regular rate and rhythm without murmurs, gallops, or rubs. RESPIRATORY: Breath sounds equal bilaterally. No accessory muscle use. No wheeze or crackle. GASTROINTESTINAL: Abdomen soft, non-tender, nondistended. MUSCULOSKELETAL: No cyanosis, or edema. No calf tenderness or edema. BACK: No CVA tenderness. Result Diagram: 09/20/16 0605 09/19/16 0525 Imaging Last 72 hours Impressions Chest X-Ray 09/17/16 1521 Signed Impressions: Service Date/Time: Saturday, September 17, 2016 15:55 - CONCLUSION: Hypoventilatory changes. The film was taken in expiration. No acute cardiopulmonary findings. Juan Pablo MD Abdomen/Pelvis CT 09/17/16 1521 Signed Impressions: Service Date/Time: Saturday, September 17, 2016 17:05 - CONCLUSION: Gallbladder contracted around multiple gallstones.. Lalo Schmidt MD Urinary Catheter: No Vascular Central Line Catheter: No A/P Problem List: (1) Sepsis Status: Acute Plan: Still somewhat questionable etiology but seems to have responded well to current therapy. She does have group A strep positive, but throat doesn't appear that irritated. Continue to oral antibiotics as an outpatient. (2) Anemia Status: Chronic Plan: Likely associated with menorrhagia. Hemoglobin stabilized. We'll provide iron supplementation. Likely will need to resume oral contraceptive pills as an outpatient. (3) Morbid obesity Status: Chronic Plan: Encouraged weight loss. (4) Menorrhagia Status: Chronic Plan: As noted above. Chronic issue. Managed outpatient. Discharge Planning Discharge home. Problem Qualifiers (1) Sepsis: Qualified Code: A40.0 - Sepsis due to group A Streptococcus (2) Anemia: Qualified Code: D50.0 - Iron deficiency anemia due to chronic blood loss Jos Garcia PhD Sep 20, 2016 06:57
--- NOTE | 2016-09-20 07:03 | HHI.DS ---
Discharge Summary Admission Date Sep 17, 2016 at 17:53 Discharge Date: Sep 20, 2016 Admitting Diagnosis Sepsis (1) Sepsis Diagnosis: Principal (2) Anemia Diagnosis: Secondary (3) Morbid obesity Diagnosis: Secondary (4) Menorrhagia Diagnosis: Secondary Brief History Pleasant morbidly obese 21-year-old Afro[place] female with History of menometrorrhagia related to the ER with complaint of sore throat fevers and nausea vomiting. She says the sore throat started approximately 4-5 days ago but that is actually improved somewhat. She had 2 episodes of vomiting yesterday and one episode of vomiting today and just general malaise so she was brought to the ER by her mother. The patient denies any recent foreign travel she has had some fevers and chills at home over the last couple of days. She denies any dysuria hematuria hematochezia melena. She's had heavy menses intermittently for the last 2-1/2 months which she says is a chronic issue for her. She has been on oral contraceptives in the past to help regulate her menses. She denies any foul-smelling vaginal discharge but does have heavy menses as noted above. She reportedly has a history of asthma but does not had a productive cough place however she has noted little wheezing yesterday and today. Initial ER evaluation noted for tachycardic patient with heart rate in the 140s and blood pressure systolically in the 120s. She was also febrile with a temp of 102.7. Her strep antigen was positive and white blood cell count was elevated at 27, 000 with left shift and bands. She is also anemic with hemoglobin of 8.5 which is likely associated with heavy menses. She has been given IV antibiotics and IV fluids. Her heart rate is responding and blood pressure remained stable. I repeated the CBC and white count is still around 23 or 24,000. Lactic acid slightly elevated as well. Repeat lactate Is pending. CBC/BMP: 09/20/16 0605 09/19/16 0525 Significant Findings Laboratory Tests Test 09/17/16 09/17/16 09/17/16 09/18/16 15:25 17:33 18:14 05:23 White Blood Count 27.4 TH/MM3 23.1 TH/MM3 26.1 TH/MM3 (4.0-11.0) (4.0-11.0) (4.0-11.0) Red Blood Count 3.43 MIL/MM3 3.39 MIL/MM3 3.13 MIL/MM3 (4.00-5.30) (4.00-5.30) (4.00-5.30) Hemoglobin 8.5 GM/DL 8.5 GM/DL 7.9 GM/DL (11.6-15.3) (11.6-15.3) (11.6-15.3) Hematocrit 26.6 % 26.4 % 24.5 % (35.0-46.0) (35.0-46.0) (35.0-46.0) Mean Corpuscular Volume 77.4 FL 77.9 FL 78.4 FL (80.0-100.0) (80.0-100.0) (80.0-100.0) Mean Corpuscular Hemoglobin 24.7 PG 25.1 PG 25.2 PG (27.0-34.0) (27.0-34.0) (27.0-34.0) Mean Corpuscular Hemoglobin 31.9 % Concent (32.0-36.0) Neutrophils (%) (Auto) 90.0 % 89.8 % 95.3 % (16.0-70.0) (16.0-70.0) (16.0-70.0) Lymphocytes (%) (Auto) 4.5 % 5.5 % 2.4 % (9.0-44.0) (9.0-44.0) (9.0-44.0) Neutrophils # (Auto) 24.7 TH/MM3 20.7 TH/MM3 24.9 TH/MM3 (1.8-7.7) (1.8-7.7) (1.8-7.7) Monocytes # (Auto) 1.1 TH/MM3 (0-0.9) Basophils # (Auto) 0.4 TH/MM3 (0-0.2) Neutrophils % (Manual) 73 % (16-70) Band Neutrophils % 19 % (0-6) Lymphocytes % 5 % (9-44) Neutrophils # (Manual) 25.2 TH/MM3 (1.8-7.7) Potassium Level 3.2 MEQ/L (3.5-5.1) Creatinine 1.30 MG/DL (0.50-1.00) Estimat Glomerular Filtration 62 ML/MIN (>89) 84 ML/MIN (>89) Rate Random Glucose 114 MG/DL 170 MG/DL (74-106) (74-106) Lactic Acid Level 2.6 mmol/L (0.4-2.0) Calcium Level 7.9 MG/DL 7.4 MG/DL (8.5-10.1) (8.5-10.1) Total Bilirubin 2.3 MG/DL 1.3 MG/DL (0.2-1.0) (0.2-1.0) Albumin 2.9 GM/DL 2.4 GM/DL (3.4-5.0) (3.4-5.0) Lipase 49 U/L (73-393) Urine Ketones TRACE mg/dL (NEG) Urine Occult Blood MOD (NEG) Urine Bacteria OCC /hpf (NONE) Lymphocytes # (Auto) 0.6 TH/MM3 (1.0-4.8) Chloride Level 112 MEQ/L (98-107) Protein Corrected Calcium 7.7 MG/DL (8.5-10.1) Aspartate Amino Transf 8 U/L (15-37) (AST/SGOT) Test 09/18/16 09/19/16 09/20/16 14:05 05:25 06:05 White Blood Count 29.2 TH/MM3 25.6 TH/MM3 14.0 TH/MM3 (4.0-11.0) (4.0-11.0) (4.0-11.0) Red Blood Count 3.59 MIL/MM3 3.04 MIL/MM3 3.15 MIL/MM3 (4.00-5.30) (4.00-5.30) (4.00-5.30) Hemoglobin 8.9 GM/DL 7.7 GM/DL 7.8 GM/DL (11.6-15.3) (11.6-15.3) (11.6-15.3) Hematocrit 28.0 % 23.5 % 24.8 % (35.0-46.0) (35.0-46.0) (35.0-46.0) Mean Corpuscular Volume 78.0 FL 77.5 FL 78.8 FL (80.0-100.0) (80.0-100.0) (80.0-100.0) Mean Corpuscular Hemoglobin 24.8 PG 25.3 PG 24.8 PG (27.0-34.0) (27.0-34.0) (27.0-34.0) Mean Corpuscular Hemoglobin 31.8 % 31.5 % Concent (32.0-36.0) (32.0-36.0) Neutrophils (%) (Auto) 95.0 % 86.5 % (16.0-70.0) (16.0-70.0) Lymphocytes (%) (Auto) 2.4 % (9.0-44.0) Neutrophils # (Auto) 27.8 TH/MM3 22.2 TH/MM3 9.8 TH/MM3 (1.8-7.7) (1.8-7.7) (1.8-7.7) Lymphocytes # (Auto) 0.7 TH/MM3 (1.0-4.8) Sodium Level 146 MEQ/L (136-145) Chloride Level 114 MEQ/L (98-107) Random Glucose 131 MG/DL (74-106) Calcium Level 7.4 MG/DL (8.5-10.1) Protein Corrected Calcium 8.1 MG/DL (8.5-10.1) Aspartate Amino Transf 6 U/L (15-37) (AST/SGOT) Total Protein 5.9 GM/DL (6.4-8.2) Albumin 2.2 GM/DL (3.4-5.0) Basophilic Stippling FAINT (NORMAL) Rouleau PRESENT (NORMAL) Hospital Course Patient admitted for sepsis is somewhat unclear etiology with significant leukocytosis and elevated pro calcitonin. She responded well to IV fluids and antibiotics. Patient defervesced over the first 24 hours. IV antibiotics were converted to oral antibiotics on the day prior to discharge. Strep A was positive. Her throat improved. It is noted that she had somewhat protracted leukocytosis with white blood cell count in the upper 20s for a few days. Blood cell count was around 14 on the day of discharge. She was tolerating oral intake quite well but cannot swallow pills so we have to use a liquid suspension formulation for her antibiotic. Additionally it is noted that patient remained somewhat anemic which is chronic for her. This is thought to be associated with her menorrhagia. This had been controlled as an outpatient on oral contraceptive pills but these were discontinued approximately 10 months ago per patient report. She did well with menses up to June 2016 when she started having heavy, long periods again. She has been instructed to follow with her primary care for possible resumption of oral contraceptive as an outpatient. She is not sexually active. She will remain on iron supplementation. Pt Condition on Discharge: Good Discharge Disposition: Discharge Home Discharge Instructions DIET: Follow Instructions for: Heart Healthy Diet Activities you can perform: Regular-No Restrictions Follow up Referrals: PCP Follow-up New Orders: CBC WITH DIFF - 2-3 Days New Medications: Amoxicillin-Clavulanate Liq (Augmentin-400 Liq) 400-57 Mg/5 Ml Susp 800 MG PO Q12H pharyngitis #120 ML Calcium Carbonate (Antacid) (Calcium Carbonate (Antacid)) 500 Mg Chew 500 MG CHEW Q12HR hypocalcemia #30 EA Zifs-Owplhbbh-Rysvqkte (Flintstones Complete) 60 Mg Tab 1 TAB CHEW DAILY anemia #30 EA Additional Information Return for fever or acute change. Jos Garcia PhD MD Sep 20, 2016 07:03
[2016-09-20] MEDS ORDERED: AUGM400S PO (07:06)
[2016-09-20] MEDS ORDERED: CALC500C16 CHEW (07:06)
[2016-09-20] MEDS ORDERED: FLINT2 CHEW (07:06)
[2016-09-20 08:00] VITALS: BP 142/82; PULSE 80; RESP 20; TEMP 98.6; O2SAT 99
[2016-09-20] MEDS ORDERED: MULTIVITAMINS/IRON/MINERALS CHEWABLE TAB CHEW SCH (09:00)
[2016-09-20] MEDS: CALCIUM CARBONATE 500 MG CHEWABLE TAB CHEW SCH (09:49)
[2016-09-20] MEDS: AMOXICIL-CLAVU 400 MG/5 ML LIQ 100 ML BTL PO SCH (09:49)
== END 2016-09-20 10:45 | disposition home or self-care (01) | DRG 872 ==
LOC: PHED 14:25 → PHEDA 17:53 → PHEDH 22:27 → PH3A 09-18 00:21
PROVIDERS: ADMIT Family Medicine; ATTEND Family Medicine
DX: A41.9 Sepsis, unspecified organism (principal); B95.0 Streptococcus, group A, as the cause of diseases classified elsewhere; Z68.42 Body mass index [BMI] 45.0-49.9, adult; E66.01 Morbid (severe) obesity due to excess calories; D64.9 Anemia, unspecified; N92.0 Excessive and frequent menstruation with regular cycle; J45.909 Unspecified asthma, uncomplicated; K80.20 Calculus of gallbladder without cholecystitis without obstruction
CPT/HCPCS: 71010; 74177; 80053; 81001; 83036; 83605; 83690; 84145; 84703; 85007; 85025; 85027; 87040; 87804; 87880; 96361; 96365; 96367; 96375; J0696; J1100; J2543; J2920; J3370; J3480; J7030; J7050; Q9967

== ENCOUNTER → 2016-11-02 | Day surgery (SDC) | payer OTHER ==
[~2016-11-02] MED LIST changes: +AUGM400S PO; +BUPIVACAINE HCL PF 0.5% 30 ML VIAL ONE; +BUPIVACAINE/EPINEPHRINE 0.25% 50 ML VIAL ONE; +CALC500C16 CHEW; -CORTIS10A RIGHT EAR; -CYCL-36 PO; -DICL50 PO; +FLINT2 CHEW; -IBUP-232 PO; +KETOROLAC TROMETHAMINE 30 MG/ML (IVP) VIAL IV PUSH ONE; +LACTATED RINGER'S 1000 ML INJ 1,000 ML ONE; +MIDAZOLAM HCL 2 MG/2 ML VIAL ONE; +ONDANSETRON HCL 4 MG/2 ML VIAL IV PUSH ONE; +PROPOFOL 200 MG/20 ML AMP IV ONE; +ceFAZolin 2 GM PREMIX 50 ML ONE; +metroNIDAZOLE 500 MG INJ 100 ML IV ONE; +oxyCODONE/ACETAMINOPHEN 5 MG/325 MG TAB ONE
--- NOTE | 2016-11-02 13:28 | TN ---
cc: KSENIA MA MD DATE OF SURGERY: 11/02/2016. PREOPERATIVE DIAGNOSIS: Symptomatic cholelithiasis. POSTOPERATIVE DIAGNOSIS: Symptomatic cholelithiasis. OPERATIVE PROCEDURE PERFORMED: Laparoscopic cholecystectomy. SURGEON: Ksenia Ma MD. ORDER TAKER: SANDHYA Patel. ANESTHESIA: General anesthesia via LMA. ESTIMATED BLOOD LOSS: Minimal. SPECIMEN: Gallbladder. DESCRIPTION OF THE PROCEDURE IN DETAIL: The patient was taken to the operating room and placed in a supine position. General endotracheal anesthesia was induced. The abdomen was prepped and draped in the usual sterile fashion. A surgical time-out was performed to verify correct patient, procedure and site. Appropriate perioperative antibiotics were administered. Superior to the umbilicus, a 5 mm incision was made and the abdomen entered using the OptiVu trocar. The patient was placed in reverse Trendelenburg position. Attention was turned to the right upper quadrant. A 12 mm port was placed in the epigastrium and a 5 mm port in the right upper abdomen and a 5 mm port the right lateral abdomen. Attention was turned to the gallbladder. The dome was grasped and the gallbladder was retracted cephalad. The gallbladder had some chronic scarring and was mainly contracted around multiple stones. The infundibulum was grasped and retracted laterally. Careful judicious use of electrocautery was used to delineate the cystic duct. The patient had a very tiny cystic artery and this was divided with electrocautery. In the cystic duct, there were noted to be two stones, one of which was quite stuck. Due to this, I went a little more proximally on the cystic duct divided the adventitial tissue. I was clearly well away from the common duct and therefore placed two clips proximally and once distally leaving the stone with the gallbladder specimen. The cystic duct was then divided and the gallbladder removed the liver bed using electrocautery. It was placed in an EndoCatch bag and removed from the abdomen. There was good hemostasis. The clips on the cystic duct were i place with no leakage of bile. The fascia at the 12 mm port site was closed with a Yves Montero device and a 0 Vicryl suture. At this point, the trocars were all removed and the abdomen allowed to desufflate. The skin was closed with subcuticular 4-0 Monocryl as well as Dermabond. The patient tolerated the procedure well and was extubated and taken to the post-anesthesia care unit in stable condition. MD MELISA King/JCTerry /12:32 PM /1:21 PM
== END | disposition home or self-care (01) ==
LOC: ESDC 09:44
PROVIDERS: ATTEND Surgery
DX: K80.10 Calculus of gallbladder with chronic cholecystitis without obstruction (principal)
CPT/HCPCS: 00790; 47562; 88304; J0690; J1885; J2250; J2405; J3010; J7120

== ENCOUNTER 2017-07-07 22:24 | Emergency (ER) | payer OTHER ==
[~2017-07-07] VITALS: Ht 162.6 cm; Wt 129.0 kg
[~2017-07-07 22:24] MED LIST changes: -BUPIVACAINE HCL PF 0.5% 30 ML VIAL ONE; -BUPIVACAINE/EPINEPHRINE 0.25% 50 ML VIAL ONE; -KETOROLAC TROMETHAMINE 30 MG/ML (IVP) VIAL IV PUSH ONE; -LACTATED RINGER'S 1000 ML INJ 1,000 ML ONE; -MIDAZOLAM HCL 2 MG/2 ML VIAL ONE; -ONDANSETRON HCL 4 MG/2 ML VIAL IV PUSH ONE; -PROPOFOL 200 MG/20 ML AMP IV ONE; -ceFAZolin 2 GM PREMIX 50 ML ONE; -metroNIDAZOLE 500 MG INJ 100 ML IV ONE; -oxyCODONE/ACETAMINOPHEN 5 MG/325 MG TAB ONE
[2017-07-07 22:41] VITALS: BP 182/68; PULSE 78; RESP 20; TEMP 97.7; O2SAT 98
--- NOTE | 2017-07-07 23:44 | PD ---
HPI Chief Complaint: Pain: Acute or Chronic Time Seen by Provider: 23:41 Travel History International Travel<30 days: No Contact w/Intl Traveler<30days: No Traveled to known affect area: No History of Present Illness HPI The patient is a 22-year-old female that works 3 jobs. She complains of pain in the right subscapular area for one month. She denies any radiation of pain. She also has some pain in the right shoulder. PFSH Past Medical History Hx Anticoagulant Therapy: No Asthma: Yes (as a kid) Autoimmune Disease: No Cancer: No Cardiovascular Problems: No Chemotherapy: No Cerebrovascular Accident: No Developmental Delay: No Diabetes: No Diminished Hearing: No Endocrine: No Genitourinary: No Immune Disorder: No Musculoskeletal: Yes (frequent ankle and knee sprains r/t sports) Neurologic: No Psychiatric: No Reproductive: Yes (irregular, heavy menstrual cycles) Respiratory: Yes (ASTHMA, mostly childhood) Immunizations Current: Yes Radiation Therapy: No Sickle Cell Disease: No Tetanus Vaccination: > 5 Years Influenza Vaccination: No ?: Not LMP: 06-06-17 Past Surgical History AICD: No Arteriovenous Shunt: No Cholecystectomy: Yes Hysterectomy: No Insulin Pump: No Joint Replacement: No Pacemaker: No Family History Family Hypercholesterolemia: No Social History Alcohol Use: No Tobacco Use: No Substance Use: No Allergies-Medications (Allergen,Severity, Reaction): Coded Allergies: No Known Allergies (Verified Adverse Reaction, Unknown, 07/07/17) Reported Meds & Prescriptions Reported Meds & Active Scripts Active Review of Systems Except as stated in HPI: all other systems reviewed are Neg Physical Exam Narrative GENERAL: Well-nourished, obese patient in slight amount of distress with her right shoulder discomfort. Her vital signs show blood pressure 182/68 but otherwise normal. SKIN: Focused skin assessment warm/dry. HEAD: Normocephalic. EYES: No scleral icterus. No injection or drainage. NECK: Supple, trachea midline. No JVD or lymphadenopathy. CARDIOVASCULAR: Regular rate and rhythm without murmurs, gallops, or rubs. RESPIRATORY: Breath sounds equal bilaterally. No accessory muscle use. GASTROINTESTINAL: Abdomen soft, non-tender, nondistended. MUSCULOSKELETAL: No cyanosis, or edema. There is tenderness around the right scapular area. There is no direct muscle tenderness, this appears to be bursitis. Movement of the shoulder reproduces pain. BACK: Nontender without obvious deformity. No CVA tenderness. Data Data Last Documented VS Vital Signs Date Time Temp Pulse Resp B/P (MAP) Pulse Ox O2 Delivery O2 Flow Rate FiO2 07/07/17 22:41 97.7 78 20 182/68 (106) 98 Orders Orders Ketorolac Inj (Toradol Inj) (07/08/17 00:00) Splint Or Brace Apply/Monitor (07/07/17 23:47) MDM Medical Decision Making Medical Screen Exam Complete: Yes Emergency Medical Condition: Yes Medical Record Reviewed: Yes Differential Diagnosis Muscle strain back, trapezius strain, rotator cuff tear, subscapular bursitis Narrative Course The patient has subscapular bursitis. She is diffusely tenderness around the scapula and movements, even passive movements, reproduce the pain. Diagnosis Primary Impression: Subscapular bursitis Additional Instructions: Rest is essential, you will be given work excuses for at least a week. This is why it is not getting better because you are not resting the shoulder. Follow- up next week with your primary care physician. Med/Other Pt SpecificInfo: Prescription(s) given Scripts Ibuprofen (Ibuprofen) 600 Mg Tab 600 MG PO TID, #33 TAB 0 Refills Prov: Wilbert Triplett MD 07/07/17 Disposition: 01 DISCHARGE HOME Condition: Stable Wilbert Triplett MD Jul 07, 2017 23:44
[2017-07-07] MEDS ORDERED: IBUP-232 PO (23:49)
[2017-07-08] MEDS ORDERED: KETOROLAC TROMETHAMINE 60 MG/2 ML (IM) VIAL IM ONE
== END 2017-07-08 00:47 | disposition home or self-care (01) ==
LOC: PHED 22:24
DX: M71.58 Other bursitis, not elsewhere classified, other site (principal)
CPT/HCPCS: 96372; 99284; J1885

== ENCOUNTER 2017-11-27 23:21 | Emergency (ER) | payer OTHER ==
[~2017-11-27] VITALS: Ht 165.1 cm; Wt 126.6 kg
[~2017-11-27 23:21] MED LIST changes: -AUGM400S PO; -CALC500C16 CHEW; -FLINT2 CHEW; +IBUP-232 PO
[2017-11-27 23:29] VITALS: BP 129/71; PULSE 88; RESP 16; TEMP 97.7
[2017-11-28] MEDS ORDERED: LIDOCAINE 1%/EPINEPHrine 1:100,000 SOLN 50 ML VIAL INFIL ONE (01:00)
[2017-11-28] MEDS ORDERED: BACT800T5 PO (02:03)
--- NOTE | 2017-11-28 02:05 | PD ---
HPI Chief Complaint: Skin Problem Time Seen by Provider: 00:52 Travel History International Travel<30 days: No Contact w/Intl Traveler<30days: No Traveled to known affect area: No History of Present Illness HPI The patient is a 22-year-old female that noticed a painful lump on her chin for 5 days. She believes it is an abscess. PFSH Past Medical History Hx Anticoagulant Therapy: No Asthma: Yes (as a kid) Autoimmune Disease: No Cancer: No Cardiovascular Problems: No Chemotherapy: No Cerebrovascular Accident: No Developmental Delay: No Diabetes: No Diminished Hearing: No Endocrine: No Genitourinary: No Immune Disorder: No Musculoskeletal: Yes (frequent ankle and knee sprains r/t sports) Neurologic: No Psychiatric: No Reproductive: Yes (irregular, heavy menstrual cycles) Respiratory: Yes (ASTHMA, mostly childhood) Immunizations Current: Yes Radiation Therapy: No Sickle Cell Disease: No Tetanus Vaccination: > 5 Years Influenza Vaccination: No ?: Not Past Surgical History AICD: No Arteriovenous Shunt: No Cholecystectomy: Yes Hysterectomy: No Insulin Pump: No Joint Replacement: No Pacemaker: No Other Surgery: No Family History Family Hypercholesterolemia: No Social History Alcohol Use: No Tobacco Use: No Substance Use: No Allergies-Medications (Allergen,Severity, Reaction): Coded Allergies: No Known Allergies (Verified Adverse Reaction, Unknown, 07/07/17) Reported Meds & Prescriptions Reported Meds & Active Scripts Active Ibuprofen 600 Mg Tab 600 Mg PO TID Review of Systems Except as stated in HPI: all other systems reviewed are Neg Physical Exam Narrative GENERAL: Well-nourished, well-developed patient in minimal apparent distress with her small chin abscess. Her vital signs are normal. SKIN: Focused skin assessment warm/dry. There is a 1 cm diameter indurated area which is extremely tender. No ingrown hairs are seen. HEAD: Normocephalic. EYES: No scleral icterus. No injection or drainage. NECK: Supple, trachea midline. No JVD or lymphadenopathy. CARDIOVASCULAR: Regular rate and rhythm without murmurs, gallops, or rubs. RESPIRATORY: Breath sounds equal bilaterally. No accessory muscle use. GASTROINTESTINAL: Abdomen soft, non-tender, nondistended. MUSCULOSKELETAL: No cyanosis, or edema. BACK: Nontender without obvious deformity. No CVA tenderness. Data Data Last Documented VS Vital Signs Date Time Temp Pulse Resp B/P (MAP) Pulse Ox O2 Delivery O2 Flow Rate FiO2 11/28/17 01:05 (90) 11/27/17 23:29 97.7 88 16 Orders Orders Lidocai-Epi 1%-1:100,000 Inj (Xylocaine- (11/28/17 01:00) MDM Medical Decision Making Medical Screen Exam Complete: Yes Emergency Medical Condition: Yes Medical Record Reviewed: Yes Differential Diagnosis Well-developed abscess, early abscess, ingrown hair Narrative Course The patient apparently has an early abscess. There is no evidence of ingrown hair. Only a small amount of pus was recovered. The patient will be put on Bactrim DS and she should use warm compresses 4 times daily. Procedures Procedure Narrative The skin was prepped with Betadine. 1% lidocaine was instilled around the abscess and field block fashion under sterile technique a #11 blade was used to incise into what appeared to be an abscess cavity. Only a small amount of pus was recovered. The patient tolerated the procedure well. Diagnosis Primary Impression: Facial abscess Additional Impression: Encounter for incision and drainage procedure Additional Instructions: The antibiotic is 1 tablet twice daily for 10 days. We will give you the first dose here tonight. Use warm compresses at least twice daily for about 30 minutes to draw the blood to the area. Med/Other Pt SpecificInfo: Prescription(s) given Scripts Sulfamethoxazole-Trimethoprim (Bactrim DS) 800-160 Mg Tab 1 TAB PO BID for Infection, #20 TAB 0 Refills Prov: Wilbert Triplett MD 11/28/17 Disposition: 01 DISCHARGE HOME Condition: Stable Wilbert Triplett MD Nov 28, 2017 02:05
[2017-11-28] MEDS ORDERED: SULFAMETHOXAZOLE-TRIMETHOPRIM DS 800-160 MG TAB PO ONE (02:15)
[2017-11-28 02:18] VITALS: BP 130/78
== END 2017-11-28 02:19 | disposition home or self-care (01) ==
LOC: PHED 23:21
DX: L02.01 Cutaneous abscess of face (principal); J45.909 Unspecified asthma, uncomplicated
CPT/HCPCS: 10060

== ENCOUNTER 2017-12-25 10:04 | Emergency (ER) | payer OTHER ==
[~2017-12-25] VITALS: Ht 165.1 cm; Wt 126.0 kg
[~2017-12-25 10:04] MED LIST changes: +BACT800T5 PO
[2017-12-25 10:10] VITALS: BP 145/65; PULSE 87; RESP 16; TEMP 97.6; O2SAT 100
[2017-12-25 10:20] VITALS: RESP 16; O2SAT 100
[2017-12-25] MEDS ORDERED: SODIUM CHLORIDE 0.9% FLUSH 10 ML FLUSH IVF PRN (10:30)
--- NOTE | 2017-12-25 10:32 | PD ---
HPI Chief Complaint: Pain: Acute or Chronic Time Seen by Provider: 10:10 Travel History International Travel<30 days: No Contact w/Intl Traveler<30days: No Traveled to known affect area: No History of Present Illness HPI 22-year-old female complains of pain in the left arm which radiated to the left neck followed by chest pain. Pain has been worsening since. Onset occurred while patient the was driving. The patient reports severe stress lately related to school. No shortness of breath. No cough or fever. PFSH Past Medical History Hx Anticoagulant Therapy: No Asthma: Yes (as a kid) Autoimmune Disease: No Cancer: No Cardiovascular Problems: No Chemotherapy: No Cerebrovascular Accident: No Developmental Delay: No Diabetes: No Diminished Hearing: No Endocrine: No Genitourinary: No Immune Disorder: No Musculoskeletal: Yes (frequent ankle and knee sprains r/t sports) Neurologic: No Psychiatric: No Reproductive: Yes (irregular, heavy menstrual cycles) Respiratory: Yes (ASTHMA, mostly childhood) Immunizations Current: Yes Radiation Therapy: No Sickle Cell Disease: No Influenza Vaccination: No ?: Not LMP: 2 MONTHS AGO Past Surgical History AICD: No Arteriovenous Shunt: No Cholecystectomy: Yes Hysterectomy: No Insulin Pump: No Joint Replacement: No Pacemaker: No Other Surgery: No Family History Family Hypercholesterolemia: No Social History Alcohol Use: No Tobacco Use: No Substance Use: No Allergies-Medications (Allergen,Severity, Reaction): Coded Allergies: No Known Allergies (Verified Adverse Reaction, Unknown, 12/25/17) Reported Meds & Prescriptions Reported Meds & Active Scripts Active No Active Prescriptions or Reported Medications Review of Systems Except as stated in HPI: all other systems reviewed are Neg General / Constitutional: No: Fever Physical Exam Narrative GENERAL: 22 yo F, WNWD, NAD Vital Signs Date Time Temp Pulse Resp B/P (MAP) Pulse Ox O2 Delivery O2 Flow Rate FiO2 12/25/17 10:14 77 12/25/17 10:10 97.6 87 16 145/65 (91) 100 SKIN: Warm and dry. HEAD: Atraumatic. Normocephalic. EYES: Pupils equal and round. No scleral icterus. No injection or drainage. ENT: No nasal bleeding or discharge. Mucous membranes pink and moist. NECK: Trachea midline. No JVD. CARDIOVASCULAR: Regular rate and rhythm. RESPIRATORY: No accessory muscle use. Clear to auscultation. Breath sounds equal bilaterally. GASTROINTESTINAL: Abdomen soft, non-tender, nondistended. Hepatic and splenic margins not palpable. MUSCULOSKELETAL: Extremities without clubbing, cyanosis, or edema. No obvious deformities. NEUROLOGICAL: Awake and alert. No obvious cranial nerve deficits. Motor grossly within normal limits. Five out of 5 muscle strength in the arms and legs. Normal speech. PSYCHIATRIC: Appropriate mood and affect; insight and judgment normal. Data Data Last Documented VS Vital Signs Date Time Temp Pulse Resp B/P (MAP) Pulse Ox O2 Delivery O2 Flow Rate FiO2 12/25/17 10:20 100 Room Air 12/25/17 10:20 16 12/25/17 10:14 77 12/25/17 10:10 97.6 145/65 (91) Orders Orders Basic Metabolic Panel (Bmp) (12/25/17 10:27) Ckmb (Isoenzyme) Profile (12/25/17 10:27) Complete Blood Count With Diff (12/25/17 10:27) Magnesium (Mg) (12/25/17 10:27) Troponin I (12/25/17 10:27) Chest, Single Ap (12/25/17 10:27) Ecg Monitoring (12/25/17 10:27) Iv Access Insert/Monitor (12/25/17 10:27) Oximetry (12/25/17 10:27) Oxygen Administration (12/25/17 10:27) Sodium Chloride 0.9% Flush (Ns Flush) (12/25/17 10:30) Lorazepam Inj (Ativan Inj) (12/25/17 10:45) Electrocardiogram (12/25/17 ) CKMB (12/25/17 10:40) CKMB% (12/25/17 10:40) Labs Laboratory Tests Test 12/25/17 10:40 White Blood Count 8.1 TH/MM3 Red Blood Count 4.13 MIL/MM3 Hemoglobin 10.1 GM/DL Hematocrit 30.8 % Mean Corpuscular Volume 74.6 FL Mean Corpuscular Hemoglobin 24.5 PG Mean Corpuscular Hemoglobin Concent 32.9 % Red Cell Distribution Width 14.9 % Platelet Count 361 TH/MM3 Mean Platelet Volume 8.2 FL Neutrophils (%) (Auto) 69.0 % Lymphocytes (%) (Auto) 22.0 % Monocytes (%) (Auto) 4.9 % Eosinophils (%) (Auto) 3.4 % Basophils (%) (Auto) 0.7 % Neutrophils # (Auto) 5.5 TH/MM3 Lymphocytes # (Auto) 1.8 TH/MM3 Monocytes # (Auto) 0.4 TH/MM3 Eosinophils # (Auto) 0.3 TH/MM3 Basophils # (Auto) 0.1 TH/MM3 CBC Comment AUTO DIFF Differential Comment AUTO DIFF CONFIRMED Blood Urea Nitrogen 4 MG/DL Creatinine 0.89 MG/DL Random Glucose 100 MG/DL Calcium Level 8.4 MG/DL Magnesium Level 2.1 MG/DL Sodium Level 140 MEQ/L Potassium Level 4.1 MEQ/L Chloride Level 106 MEQ/L Carbon Dioxide Level 28.4 MEQ/L Anion Gap 6 MEQ/L Estimat Glomerular Filtration Rate 95 ML/MIN Total Creatine Kinase 198 U/L Creatine Kinase MB 0.8 NG/ML Creatine Kinase MB % 0.4 % Troponin I LESS THAN 0.02 NG/ML MDM Medical Decision Making Medical Screen Exam Complete: Yes Emergency Medical Condition: Yes Medical Record Reviewed: Yes Differential Diagnosis NSTEMI, unstable angina, coronary vasospasm, PE, PTX, aortic dissection, pericarditis, myocarditis, endocarditis, PNA, esophageal disease, aneurysm, musculoskeletal etiologies, anxiety, cocaine/sympathomimetic abuse Narrative Course EKG shows a sinus rhythm with a rate of 95 normal axis intervals, no ischemic injury pattern Last Impressions Chest X-Ray 12/25/17 1027 Signed Impressions: Service Date/Time: Monday, December 25, 2017 10:40 - CONCLUSION: 1. No acute cardiopulmonary disease. Atul Samuel MD CBC & BMP Diagram 12/25/17 10:40 Calcium Level 8.4 L, Magnesium Level 2.1 The patient is resting comfortably and feels better, is alert and in no distress. The patients results and examination findings were discussed. The repeat examination is unremarkable and benign. The history, exam, diagnostic testing, and current condition do not suggest any significant pathology to warrant further testing, continued ED treatment, admission, or surgical evaluation at this point. The vital signs have been stable. The patient does not have uncontrollable pain, intractable vomiting, or other significant symptoms. The patient's condition is stable and appropriate for discharge. The patient will pursue further outpatient evaluation with a primary care physician or other designated or consulting physician as indicated in the discharge instructions. The patient expressed understanding and was agreeable with this plan. Diagnosis Primary Impression: Chest pain Qualified Codes: R07.9 - Chest pain, unspecified Additional Impression: Anxiety Referrals: Primary Care Physician call for appointment Med/Other Pt SpecificInfo: No Change to Meds Scripts No Active Prescriptions or Reported Meds Disposition: 01 DISCHARGE HOME Condition: Stable Juan Rees MD December 25, 2017 10:32
[2017-12-25] MEDS ORDERED: LORazepam 2 MG/ML VIAL IV PUSH ONE (10:45)
[2017-12-25 10:52] LABS: AUTOMATED NEUTROPHIL # 5.5 TH/MM3 (1.8-7.7); BASOPHIL # 0.1 TH/MM3 (0-0.2); BASOPHIL % 0.7 % (0.0-2.0); EOSINOPHIL # 0.3 TH/MM3 (0-0.4); EOSINOPHIL % 3.4 % (0.0-4.0); HEMATOCRIT 30.8 % (35.0-46.0); HEMOGLOBIN 10.1 GM/DL (11.6-15.3); LYMPHOCYTE # 1.8 TH/MM3 (1.0-4.8); MEAN CELL VOLUME 74.6 FL (80.0-100.0); MEAN CORPUSCULAR HEMOGLOBIN 24.5 PG (27.0-34.0); MEAN CORPUSCULAR HGB CONC 32.9 % (32.0-36.0); MEAN PLATELET VOLUME 8.2 FL (7.0-11.0); MONO % 4.9 % (0.0-8.0); MONOCYTE # 0.4 TH/MM3 (0-0.9); PLATELET COUNT 361 TH/MM3 (150-450); RED BLOOD COUNT 4.13 MIL/MM3 (4.00-5.30); RED CELL DISTRIBUTION WIDTH 14.9 % (11.6-17.2); WHITE BLOOD COUNT 8.1 TH/MM3 (4.0-11.0)
--- NOTE | 2017-12-25 10:53 | RADRPT ---
EXAM DATE/TIME: 12/25/2017 10:40 [facility] COMPARISON: CHEST SINGLE AP, September 17, 2016, 15:55. INDICATIONS : Chest pain, short of breath. MEDICAL HISTORY : None. SURGICAL HISTORY : None. ENCOUNTER: Initial ACUITY: 1 day PAIN SCORE: 6/10 LOCATION: Bilateral chest FINDINGS: A single view of the chest demonstrates the lungs to be symmetrically aerated without evidence of mas s, infiltrate or effusion. The cardiomediastinal contours are unremarkable. Osseous structures are intact. CONCLUSION: 1. No acute cardiopulmonary disease. Atul Samuel MD on December 25, 2017 at 10:51 Board Certified Radiologist. This report was verified electronically.
[2017-12-25 10:54] VITALS: BP 136/80; PULSE 81; RESP 16; O2SAT 99
[2017-12-25 10:58] LABS: CHLORIDE 106 MEQ/L (98-107); SODIUM (NA) 140 MEQ/L (136-145)
[2017-12-25 11:01] LABS: BICARBONATE 28.4 MEQ/L (21.0-32.0); CALCIUM 8.4 MG/DL (8.5-10.1)
[2017-12-25 11:02] LABS: BLOOD UREA NITROGEN 4 MG/DL (7-18); GLUCOSE,RANDOM 100 MG/DL (74-106); MAGNESIUM 2.1 MG/DL (1.5-2.5)
[2017-12-25 11:05] LABS: CREATININE 0.89 MG/DL (0.50-1.00); GLOMERULAR FILTRATION RATE 95 ML/MIN (>89)
[2017-12-25 11:10] LABS: TROPONIN I LESS THAN 0.02 NG/ML (0.02-0.05)
--- NOTE | 2017-12-25 11:56 | EKG ---
Date Performed: 12/25/2017 Time Performed: 10:09:22 PTAGE: 22 years EKG: Sinus rhythm NORMAL ECG NO PREVIOUS TRACING DOCTOR: Oleksandr Villalba Interpretating Date/Time 12/25/2017 11:54:49
== END 2017-12-25 11:48 | disposition home or self-care (01) ==
LOC: PHED 10:04
DX: R07.9 Chest pain, unspecified (principal); F41.9 Anxiety disorder, unspecified; J45.909 Unspecified asthma, uncomplicated
CPT/HCPCS: 71045; 80048; 82550; 82552; 83735; 84484; 85025; 93005; 96374; 99285; J2060